=== PATIENT | male | born 1965 | race Caucasian/White ===

== ENCOUNTER 2017-04-02 17:00 | Inpatient (IN) | payer MEDICAID ==
[~2017-04-02] VITALS: Ht 167.6 cm; Wt 57.5 kg
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
[2017-04-02 20:40] LABS: HEMATOCRIT 37.5 % (37.0-53.0); MCH 35.4 pg (27.0-34.0); MCHC 34.7 gm/dL (32.0-36.5); MCV 102.2 fl (83.0-98.0); MPV 9.6 fl (9.4-12.4); RBC 3.67 M/uL (4.00-6.00); RDW-CV 12.5 % (11.9-14.6); WBC 9.3 K/uL (4.0-11.0)
[2017-04-02 20:48] LABS: PROTIME 10.5 SECONDS (9.8-11.4)
[2017-04-02 21:00] LABS: ALBUMIN 3.8 gm/dL (3.5-5.0); ALK PHOS 90 IU/L (33-138); ALT 123 IU/L (12-78); ANION GAP 16.5 (10.0-19.0); AST 310 IU/L (10-40); BLOOD UREA NITROGEN 11 mg/dL (6-24); CHLORIDE 103 mMol/L (96-110); CO2 25 mMol/L (22-32); CREATININE 0.6 mg/dL (0.6-1.3); ESTIMATED GFR (MDRD EQUATION) > 60; MAGNESIUM 1.3 mg/dL (1.8-2.6); POTASSIUM 3.5 mMol/L (3.7-5.1); SODIUM 141 mMol/L (135-145)
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
[2017-04-03 04:29] LABS: BASOPHIL % 0.6 %; EOSINOPHIL % 0.3 %; HEMATOCRIT 33.7 % (37.0-53.0); HEMOGLOBIN 11.8 g/dL (12.0-17.0); IMMATURE GRANULOCYTE % 0.3 %; LYMPHOCYTE # 0.8 K/uL (0.8-4.0); LYMPHOCYTE % 10.6 %; MCH 35.5 pg (27.0-34.0); MCV 101.5 fl (83.0-98.0); MONOCYTE # 0.5 K/uL (0.0-1.0); MPV 9.6 fl (9.4-12.4); NEUTROPHIL # (ANC) 5.9 K/uL (1.4-9.0); NEUTROPHIL % 81.2 %; NRBC % 0 /100WBC (0-0.00); PLATELET COUNT 107 K/uL (150-450); RBC 3.32 M/uL (4.00-6.00); RDW-CV 12.5 % (11.9-14.6); WBC 7.3 K/uL (4.0-11.0)
[2017-04-03 04:48] LABS: ANION GAP 14.6 (10.0-19.0); BLOOD UREA NITROGEN 10 mg/dL (6-24); CHLORIDE 105 mMol/L (96-110); CO2 23 mMol/L (22-32); CREATININE 0.5 mg/dL (0.6-1.3); ESTIMATED GFR (MDRD EQUATION) > 60; MAGNESIUM 1.7 mg/dL (1.8-2.6); PHOSPHORUS 3.1 mg/dL (2.5-4.9); POTASSIUM 3.6 mMol/L (3.7-5.1); SODIUM 139 mMol/L (135-145)
--- NOTE | 2017-04-03 05:46 | NUR ---
Significant Event: Patient alert/oriented x 3. Left pupil slightly bigger than right. Moves all extremities spontaneously and to command with equal strength. Valium given for CIWA score of 18 at 0433, 10 mg given. Lungs clear and dim on 2 L. Productive cough. Swelling to right side of mouth/cheek, bloody drainage. 175 ml of emesis. Htn at times. Afebrile. Bowel sounds active. No bm this shift. Voiding per urinal. Ambulates 1 assist. PIV to right fa running NS TKO. Percocet given this shift last at 2020 x 2 tabs. Follow up: Continue to monitor. CIWA q1 x 8 from 0430.
[2017-04-03] MEDS ORDERED: TAB-A-VITE1 EACH PO (08:15)
[2017-04-03] MEDS ORDERED: VITAMIN B-1100 M1 PO (08:16)
--- NOTE | 2017-04-03 13:31 | NUR ---
Reviewed chart and printed resources for inpatient 30 day alcohol treatment programs in [place] and also searched the internet for outpt counseling options in [place]. There is a counselor Kyra Lyn who does outpt and other mental health counseling in [place] [phone]. Introduced self and care management services to patient. Lives in [place], discussed his alcohol abuse, he says he knows he needs to stop. Asked him if he is interested in a 30 day inpatient treatment program to get him on the right path and he says no he is not, did one a year and a half ago in [place]. Asked him if we can help him set up outpt alcohol counseling in [place], he said he sees Kyra Lyn already. Asked him when the last time he saw her was. He said a month ago and hasn't been back because she said she wouldn't see him if he wasn't going to stop drinking. Again encouraged a 30 day inpatient program and he declines, says he will stop and call Kyra when he gets home, tells me her phone number from memory. Asked if he wants us to call and set up an appt and he declines. Says he will need a ride back to [place] on discharge, has Medicaid and uses [facility]. Told me to call [facility] to get his Medicaid information as he doesn't have his wallet with him. Pt gave me the following demographic information 61 # [id number] lives at [address] [place] [address] in [facility], and has a sister Ingris in [place] at phone number [phone], only a message phone as he doesn't have a phone, she helps him manage his finances.
--- NOTE | 2017-04-03 18:41 | NUR ---
Significant Event: a/o to person and year with first assessment. after first assessment, a/o x 3. CWA to assess for needs for ativan. does have anxiety, tremors, sweating and headache. See Flow Sheet. Pain from rib fxs left side of chest, right shoulder and lips. PRN percocet for pain management. Takes meds whole. does have hx of difficulty swallowing pills. 40 MEQ of potassium given for potassium level of 3.6. 2gm of magnesium administered for mg of 1.7 this am. voids per urinal. rests in bed this shift. does sit up on edge of bed without difficulty and repositions self in bed. uses call light appropriately. Lung sounds clear right, coarse left upper and diminished left lower. Left pupil 3.5 and brisk and right pupil 3.0 and brisk. tele with sinus rythm. oxygen PRN. did wear 2 liters at times. new orders for OT/PT/ST.
[2017-04-04 04:25] LABS: BASOPHIL % 0.6 %; EOSINOPHIL # 0.1 K/uL (0.0-0.5); EOSINOPHIL % 2.9 %; HEMATOCRIT 32.5 % (37.0-53.0); HEMOGLOBIN 11.4 g/dL (12.0-17.0); IMMATURE GRANULOCYTE % 0.4 %; LYMPHOCYTE # 0.8 K/uL (0.8-4.0); LYMPHOCYTE % 15.7 %; MCHC 35.1 gm/dL (32.0-36.5); MCV 102.5 fl (83.0-98.0); MONOCYTE # 0.4 K/uL (0.0-1.0); MONOCYTE % 7.9 %; MPV 10.2 fl (9.4-12.4); NEUTROPHIL # (ANC) 3.6 K/uL (1.4-9.0); NEUTROPHIL % 72.5 %; NRBC % 0 /100WBC (0-0.00); PLATELET COUNT 100 K/uL (150-450); RBC 3.17 M/uL (4.00-6.00); RDW-CV 12.1 % (11.9-14.6); WBC 4.9 K/uL (4.0-11.0)
[2017-04-04 04:50] LABS: ANION GAP 11.7 (10.0-19.0); BLOOD UREA NITROGEN 5 mg/dL (6-24); CALCIUM 7.9 mg/dL (8.5-10.5); CHLORIDE 102 mMol/L (96-110); CO2 28 mMol/L (22-32); CREATININE 0.4 mg/dL (0.6-1.3); ESTIMATED GFR (MDRD EQUATION) > 60; PHOSPHORUS 2.5 mg/dL (2.5-4.9); POTASSIUM 3.7 mMol/L (3.7-5.1); SODIUM 138 mMol/L (135-145)
--- NOTE | 2017-04-04 05:27 | NUR ---
Significant Event:Patient is alert and oriented x3. Follows commands. Patient was slightly agitated and cooperative both first and third assessments-he c/o of not getting any sleep b/c of the beeping. Last CIWA-5. Denies N/T, N/V, or disturbances. PERRLA. Equal moderate strength. Sinus rhythm. 1-2L of O2 per nasal cannula-right side clear, left diminished. Regular diet. Last BM 04/02-active x4. Uses urinal at bedside. 2A gb. Right side of face is edematous. R) AC with NS at TKO. Did offer to clean the patient up twice and he refused both times stating that he does not "smell". Follow up: Continue to monitor.
--- NOTE | 2017-04-04 13:31 | NUR ---
Call to [facility] at 1045, talked with Rian. He tells me that they can have [facility] [employer] up on Thursday 04/05 at 1300 to take Miah back to [place]. I left the number for [employer] and also [employer] on the front of Tod' chart. I also let him know that we were planning on a 1300 dismissal time for him tomorrow. Dr. Watkins rounded on Miah while I was up on the floor, he updated me that he thinks that Miah will be able to go back home tomorrow from his standpoint. Let him know that I had transportation set up for 1300 Saturday through [facility]. I saw Dr. Liriano on the floor today, updated her to the above so she was aware of the possible dismissal to home tomorrow via [employer] at 1300, she was fine with this. ADALGISA Mcmullen and ADALGISA Gipson also update to the above. CM to continue to follow and assist.
--- NOTE | 2017-04-04 16:20 | NUR ---
Significant Event:VSS, CWAL 3-5. Alert/orientated, cooperative. Pt has little anxiety at times, nausea x 1. Percocet 2 tabs twice last dose 1500. R side of face and upper lip edematous, pt has loose skin on the inner side of upper R lip. No bleeding noted. Ecchymosis to R mid back. Ate well, IV TKO in RFA, ambulated in hallway with 1 SBA. Voids per BR. Self ADL's with supervision. CD counselor to visit this evening. Follow up:Pt DC to home in a.m. Care Mgt arranged transport.
[2017-04-05 04:33] LABS: ANION GAP 11.4 (10.0-19.0); BLOOD UREA NITROGEN 5 mg/dL (6-24); CALCIUM 8.1 mg/dL (8.5-10.5); CHLORIDE 100 mMol/L (96-110); CO2 29 mMol/L (22-32); CREATININE 0.4 mg/dL (0.6-1.3); ESTIMATED GFR (MDRD EQUATION) > 60; MAGNESIUM 1.6 mg/dL (1.8-2.6); POTASSIUM 3.4 mMol/L (3.7-5.1); SODIUM 137 mMol/L (135-145)
--- NOTE | 2017-04-05 06:58 | NUR ---
Significant Event: First assessment patient alert and oriented x3. Follows commands. PERRLA. equal moderate strength. CIWA was a 3. Second assessment patient became more anxious, agitated and was not oriented to place- CIWA was an 11, 1 tab of ativan given. Patient kept stating he was ready to go home and he thought that it was time. Third assessment patient is less anxious and is resting in bed. Does want to leave so he can smoke. Nicotine patch was placed later in shift d/t patient refusing it. Sinus rhythm. L) rib fractures- dim lung sounds. Regular diet-last BM 04/02-active x4. Uses urinal and bathroom. SBA and GB. L) post FA PIV with NS at TKO. Follow up: Possible discharge to home today 04/05. .
[2017-04-05] MEDS ORDERED: MAG-OX-400(241400 MG PO (10:55)
[2017-04-05] MEDS ORDERED: PERCOCET 5-3251 EACH PO (10:55)
[2017-04-05] MEDS ORDERED: K-TAB (4040 MEQ/4 T PO (10:56)
[2017-04-05] MEDS ORDERED: K-TAB 10MEQ10 MEQ (10:56)
--- NOTE | 2017-04-05 12:29 | NUR ---
04/05/17: PT REFUSED VITAL SIGNS TO BE TAKEN WITH SECOND ASSESSMENT. THE PT WAS ASKED SEVERAL TIMES, BUT HE WAS ADAMENT TO HAVE HIS TELEMETRY COMPLETELY OFF AND REFUSED NUMEROUS TIMES. ADALGISA PAGE
--- NOTE | 2017-04-05 12:36 | NUR ---
Significant Event: PT ALERT AND ORIENTED X3. PERRLA. MODERATE, EQUAL STRENGTH X4. SLIGHT TREMORS NOTED AT TIMES. TRANSFERS WITH STAND-BY ASSIST/GAIT BELT. VOIDS PER BATHROOM. NO BM THIS SHIFT. REFUSED TO TAKE A SHOWER. VITAL SIGNS STABLE; ON ROOM AIR. R)FACE/JAW/LIPS REMAIN EDEMATOUS/BRUISED. REFUSED TO EAT BREAKFAST AND LUNCH. TAKES MEDICATIONS WHOLE WITH WATER. DENIES ANY HEADACHE/PAIN. PO KCL AND PO MAGNESIUM GIVEN X1. SAW THE PT AND WROTE ORDERS FOR THE PT TO BE DISMISSED TODAY HOME TODAY. CARE MANAGEMENT SET UP A TRANSPORTATION SERVICE TO TRANSFER PT BACK TO [place]. PT WAS TAKEN TO THE FRONT LOBBY AT 1230 PER [facility] RESIDENT DIRECTOR, VIA WHEELCHAIR AND BELONGINGS.
--- NOTE | 2017-04-05 14:09 | NUR ---
Patient dc home today via [facility] set up through [facility].
== END 2017-04-05 12:27 | disposition disaster alternative care site (69) | DRG 65 ==
LOC: GNTU 18:38
PROVIDERS: Nurse Practitioner Family; ADMIT Neurological Surgery
PROC: F00ZJWZ Instrumental Swallowing and Oral Function Assessment using Swallowing Equipment (ICD-10-PCS; principal; 2017-04-04)
DX: I62.02 Nontraumatic subacute subdural hemorrhage (principal); F10.239 Alcohol dependence with withdrawal, unspecified; E83.42 Hypomagnesemia; S00.93XA Contusion of unspecified part of head, initial encounter; E87.6 Hypokalemia; F10.229 Alcohol dependence with intoxication, unspecified; F32.9 Major depressive disorder, single episode, unspecified; F41.9 Anxiety disorder, unspecified; R26.81 Unsteadiness on feet; Y09 Assault by unspecified means; Y93.01 Activity, walking, marching and hiking; Y90.9 Presence of alcohol in blood, level not specified
CPT/HCPCS: J2405; J3411; J3475; J7030

== ENCOUNTER → 2017-04-02 | Outpatient (CLI) | payer MEDICAID ==
[~2017-04-02] MED LIST: K-TAB (4040 MEQ/4 T PO; K-TAB 10MEQ10 MEQ; MAG-OX-400(241400 MG PO; PERCOCET 5-3251 EACH PO; TAB-A-VITE1 EACH PO; VITAMIN B-1100 M1 PO
== END | disposition disaster alternative care site (69) ==
LOC: GAMB 18:26
DX: I63.9 Cerebral infarction, unspecified (principal); I61.9 Nontraumatic intracerebral hemorrhage, unspecified
CPT/HCPCS: A0425; A0428